=== PATIENT | female | born 1975 | race Caucasian/White ===

== ENCOUNTER 2023-05-19 10:41 | Emergency (ER) | payer OTHER ==
[~2023-05-19] VITALS: Ht 167.6 cm; Wt 108.9 kg
[2023-05-19] MEDS ORDERED: CYTOMEL25 MCG PO (11:44)
[2023-05-19] MEDS ORDERED: LEVOTHYROXINE25 MC2 PO (11:44)
[2023-05-19 13:03] LABS: HEMOGLOBIN 14.1 g/dL (12.0-15.00); MEAN CELL VOLUME 84.6 fL (80.00-100.00); MEAN CORPUSCULAR HEMOGLOBIN 28.3 pg (27.00-32.0); MEAN CORPUSCULAR HGB CONC 33.5 g/dl (32.0-36.0); PLATELET COUNT 270 K/uL (150-450); RED BLOOD COUNT 4.97 M/uL (4.00-6.00); RED CELL DISTRIBUTION WIDTH 14.7 % (11.5-14.5)
[2023-05-19 13:50] LABS: ALBUMIN 3.6 gm/dL (3.4-5.0); BILIRUBIN TOTAL 0.48 mg/dL (0.3-1.2); BILIRUBIN,CONJUGATED 0.14 mg/dL (0.0-0.2); BILIRUBIN,UNCONJUGATED 0.34 mg/dL (0.0-0.6); CALCIUM 9.5 mg/dL (8.5-10.1); CREATININE SERUM 0.7 mg/dL (0.55-1.02); GFR 90.08; GLOBULINA 4.5 G/DL (2.4-3.5); POTASSIUM 3.88 mEq/L (3.5-5.1); TOTAL PROTEIN 8.1 gm/dL (6.4-8.2)
[2023-05-19] MEDS ORDERED: LEVSIN/SL0.125 MG SL (15:06)
[2023-05-19] MEDS ORDERED: PEPCID AC20 MG PO (15:06)
== END 2023-05-19 15:12 | disposition home or self-care (01) ==
LOC: ER 10:42
PROVIDERS: General Practice
DX: R10.31 Right lower quadrant pain (principal); I10 Essential (primary) hypertension; K80.50 Calculus of bile duct without cholangitis or cholecystitis without obstruction
CPT/HCPCS: 36415; 96365; 96366; 99284; J1885; J2405; J2930; J3490; J7030

== ENCOUNTER 2023-05-20 19:00 | Inpatient (IN) | payer OTHER ==
[~2023-05-20] VITALS: Ht 167.6 cm; Wt 108.9 kg
[~2023-05-20 19:00] MED LIST: CYTOMEL25 MCG PO; LEVOTHYROXINE25 MC2 PO; LEVSIN/SL0.125 MG SL; PEPCID AC20 MG PO
[2023-05-20 21:33] LABS: HEMATOCRIT 39.5 % (36.0-45.00); HEMOGLOBIN 13.2 g/dL (12.0-15.00); MEAN CELL VOLUME 82.1 fL (80.00-100.00); MEAN CORPUSCULAR HEMOGLOBIN 27.5 pg (27.00-32.0); MEAN CORPUSCULAR HGB CONC 33.5 g/dl (32.0-36.0); PLATELET COUNT 291 K/uL (150-450); RED BLOOD COUNT 4.81 M/uL (4.00-6.00); RED CELL DISTRIBUTION WIDTH 14.2 % (11.5-14.5)
[2023-05-20 21:48] LABS: ALBUMIN 3.5 gm/dL (3.4-5.0); BILIRUBIN TOTAL 0.69 mg/dL (0.3-1.2); CALCIUM 9.4 mg/dL (8.5-10.1); CREATININE SERUM 0.92 mg/dL (0.55-1.02); GFR 65.72; GLOBULINA 4.5 G/DL (2.4-3.5); POTASSIUM 3.55 mEq/L (3.5-5.1)
[2023-05-21 03:06] LABS: ALBUMIN 3.3 gm/dL (3.4-5.0); BILIRUBIN TOTAL 0.88 mg/dL (0.3-1.2); BILIRUBIN,CONJUGATED 0.23 mg/dL (0.0-0.2); BILIRUBIN,UNCONJUGATED 0.65 mg/dL (0.0-0.6); TOTAL PROTEIN 6.9 gm/dL (6.4-8.2)
[2023-05-21 03:18] LABS: INR 1.01; PARTIAL THROMBOPLASTIN TIME 36.6 SECONDS (22.0-34.0); PROTHROMBIN TIME 10.6 SECONDS (9.0-11.5)
[2023-05-22 06:53] LABS: HEMATOCRIT 34.5 % (36.0-45.00); HEMOGLOBIN 11.9 g/dL (12.0-15.00); MEAN CELL VOLUME 83.7 fL (80.00-100.00); MEAN CORPUSCULAR HEMOGLOBIN 28.8 pg (27.00-32.0); MEAN CORPUSCULAR HGB CONC 34.5 g/dl (32.0-36.0); PLATELET COUNT 187 K/uL (150-450); RED BLOOD COUNT 4.12 M/uL (4.00-6.00); RED CELL DISTRIBUTION WIDTH 14.2 % (11.5-14.5)
[2023-05-22 07:34] LABS: ALBUMIN 2.5 gm/dL (3.4-5.0); BILIRUBIN TOTAL 0.91 mg/dL (0.3-1.2); CALCIUM 7.7 mg/dL (8.5-10.1); CREATININE SERUM 0.75 mg/dL (0.55-1.02); GFR 83.19; GLOBULINA 3.1 G/DL (2.4-3.5); POTASSIUM 3.65 mEq/L (3.5-5.1); TOTAL PROTEIN 5.6 gm/dL (6.4-8.2)
== END 2023-05-23 16:52 | disposition home or self-care (01) | DRG 446 ==
LOC: ER 19:01 → SEC-K 05-21 17:17 → MEDJ 05-21 17:17
PROVIDERS: General Practice; ADMIT Internal Medicine; ATTEND Internal Medicine
PROC: BW40ZZZ Ultrasonography of Abdomen (ICD-10-PCS; principal; 2023-05-20)
DX: K80.10 Calculus of gallbladder with chronic cholecystitis without obstruction (principal)